=== PATIENT | male | born 1960 | race Caucasian/White ===

== ENCOUNTER → 2023-04-28 08:51 | Outpatient (REF) | payer BC, SELFPAY | LOC: RCS 08:51 | PROVIDERS: ATTENDING PHYSICIAN Family Medicine | DX: Z00.00 Encounter for general adult medical examination without abnormal findings (principal); E66.01 Morbid (severe) obesity due to excess calories; R07.89 Other chest pain | CPT/HCPCS: 93017 ==

== ENCOUNTER → 2023-06-30 08:48 | Outpatient (REF) | payer BC, SELFPAY | LOC: DHCBC/DCA 08:48 | PROVIDERS: ATTENDING PHYSICIAN Internal Medicine Cardiovascular Disease; FAMILY PHYSICIAN Family Medicine | DX: R06.02 Shortness of breath (principal) | CPT/HCPCS: 78452; 93017; A9500 ==

== ENCOUNTER → 2023-08-20 06:31 | Day surgery (SDC) | payer BC, SELFPAY | LOC: GI 06:31 | PROVIDERS: ATTENDING PHYSICIAN Surgery; FAMILY PHYSICIAN Family Medicine | DX: Z12.11 Encounter for screening for malignant neoplasm of colon (principal); K64.9 Unspecified hemorrhoids | CPT/HCPCS: G0121 ==